=== PATIENT | male | born 1970 | race Caucasian/White ===

== ENCOUNTER 2020-05-22 14:19 | Emergency (ER) | payer OTHER, SELFPAY ==
[2020-05-22 14:20] VITALS: BP 129/85; PULSE 75; RESP 16; TEMP 36.6; O2SAT 98; BMI 38.0
--- NOTE | 2020-05-22 14:33 | ED.VIS.GEN ---
History of Present Illness Chief Complaint: Abscess Informant: Patient Narrative: Patient is a 50-year-old male who presents to the emergency department for abscess to the posterior aspect of his left neck. Been present over the past week. He did go to an urgent care who prescribed him topical mupirocin ointment as well as Keflex. They did try to do a needle aspiration but were unable to get any fluid back at that time. He has been on antibiotics since 05/19/2020. He feels like it is getting more swollen, warm and tender. He does have a history of an abscess on his thigh before. He does not know any history of MRSA. He denies any systemic symptoms including any fever/chills or nausea/vomiting. Denies any painful neck movement. He has not any headache or vision changes. No chest pain or shortness of breath. Past Medical History - Allergies and Home Meds Allergies/Adverse Reactions: Allergies No Known Allergies Allergy (Verified 05/22/20 14:20) Primary Care Physician: Amy Mason,Out of [Primary Care Provider] - Prior records reviewed: Yes Past Medical History: None Surgical History: - - Rotator cuff surgery Review of Systems All systems negative except as indicated General: Denies: Chills, Fever, Sweats Eyes: Denies: Visual changes - bilaterally, Diplopia ENT: Denies: Rhinorrhea, Sore throat Cardiovascular: Denies: Chest pain, Palpitations Respiratory: Denies: Dyspnea, Cough, Dyspnea on exertion Gastrointestinal: Denies: Abdominal pain, Nausea, Vomiting Musculoskeletal: Denies: Neck pain, Back pain, Extremity Pain Skin: Reports: Abscess. Denies: Rash, Wounds Neurological: Denies: Headache, Weakness, Numbness Physical Exam Vital Signs/Narrative: Vital Signs Temp Pulse Resp BP Pulse Ox 05/22/20 14:20 97.8 F 75 16 129/85 H 98 Inital Vital Signs reviewed: Yes General: Well nourished, Well developed, No Acute Distress Head: Normocephalic, Atraumatic Eyes: Perrl, EOMI ENT: Moist mucous membranes, No rhinorrhea Neck: Supple, Nontender Cardiovascular: Regular rate, Regular rhythm, No murmurs Respiratory: No distress, CTA bilaterally, Chest nontender Abdomen: Soft, Nontender Back: Nontender Extremities: Nontender, No edema Skin: Normal color, No rash, - - 5 cm area of induration/fluctuation on posterior left neck. No drainage present. This is warm and tender to palpation. Bedside ultrasound showed a small fluid collection. Neurological: Alert, Oriented x3, Normal Strength, Normal Sensation Psychological: Normal affect, Normal Mood Diagnostic/Tx/Re-eval - Medical Decision Making Patient presents the emergency department for abscess to posterior neck. Upon arrival to the emerge department vital signs within normal limits. Does not appear in acute distress. He is currently on antibiotics for this. We did perform an incision and drainage which got a moderate amount of pus out. He can continue on the Keflex. He will need a wound check in the next 2 to 3 days by his PCP. If he develops any systemic symptoms he is to return to the emergency department immediately. He understands and is agreeable this plan. Will discharge home in stable condition. Procedures Procedure(s): Incision and drainage: Verbal consent. Risks including infection, incomplete drainage, bleeding discussed. Area was cleaned using iodine solution. Area was anesthetized with 3 mL's of lidocaine with epinephrine. A stab incision was then made with an 11 blade. The abscess was deloculated with hemostats. Moderate amount of purulent material was able to be obtained. Patient tolerated procedure well without any parent complication. Incision dressed with gauze. ED Disposition - Plan for ED Patient: Disposition: Home or Assisted Living Diagnosis: Abscess, neck Instructions: ED Abscess Incision And Drainage Referrals: Amy Doctor,Out of [Primary Care Provider] - 2 Days for wound check
== END 2020-05-22 15:22 | disposition home or self-care (01) ==
LOC: ED 15:06
PROVIDERS: Emergency Provider Emergency Medicine
DX: L02.11 Cutaneous abscess of neck (principal); Z79.2 Long term (current) use of antibiotics
CPT/HCPCS: 10060; 99282